=== PATIENT | female | born 1990 | race African-American/Black ===

== ENCOUNTER 2016-11-20 21:11 | Emergency (ER) | payer OTHER, MEDICAID ==
[~2016-11-20 21:11] MED LIST: METR-1 PO
[2016-11-20 21:13] VITALS: BP 119/64; PULSE 71; RESP 16; TEMP 97.8; O2SAT 100
--- NOTE | 2016-11-20 21:51 | PD ---
Physical Exam Date Seen by Provider: Nov 20, 2016 Time Seen by Provider: 21:49 Data Data Last Documented VS Vital Signs Date Time Temp Pulse Resp B/P Pulse Ox O2 Delivery O2 Flow Rate FiO2 11/20/16 21:13 97.8 71 16 119/64 100 Room Air [facility] Supervised Visit with HORACIO: No Narrative Course 26 YO F with complaint of headache and dizziness after being hit in the head by the garage door ~8pm. Denies LOC. Vitals reviewed. Awaiting bed placement. Hanny Castaneda Nov 20, 2016 21:51
[2016-11-20] MEDS ORDERED: ACETAMINOPHEN 325 MG TAB PO ONE (22:00)
[2016-11-20 22:56] LABS: BLOOD, URINE NEG (NEG); GLUCOSE,URINE NEG (NEG); KETONE, URINE NEG (NEG); NITRITE,URINE NEG (NEG); URINE COLOR YELLOW (YELLW/STRAW)
[2016-11-20 23:10] LABS: COMMENT (UR) CULT NOT INDICATED; CULTURE IF INDICATED CULT NOT INDICATED
--- NOTE | 2016-11-20 23:56 | RADRPT ---
EXAM DATE/TIME: 11/20/2016 23:31 [place] COMPARISON: No previous studies available for comparison. INDICATIONS : Garage door fell on head. Complains of dizziness. RADIATION DOSE: 40.07 CTDIvol (mGy) MEDICAL HISTORY : None SURGICAL HISTORY : None. ENCOUNTER: Initial ACUITY: 1 day PAIN SCALE: 0/10 LOCATION: cranial TECHNIQUE: Multiple contiguous axial images were obtained of the head. Using automated exposure control and adj ustment of the mA and/or kV according to patient size, radiation dose was kept as low as reasonably a chievable to obtain optimal diagnostic quality images. FINDINGS: CEREBRUM: The ventricles are normal for age. No evidence of midline shift, mass lesion, hemorrhage or acute in farction. No extra-axial fluid collections are seen. POSTERIOR FOSSA: The cerebellum and brainstem are intact. The 4th ventricle is midline. The cerebellopontine angle i s unremarkable. EXTRACRANIAL: The visualized portion of the orbits is intact. SKULL: The calvaria is intact. No evidence of skull fracture. CONCLUSION: Normal examination. Bud Bee MD on November 20, 2016 at 23:55 Board Certified Radiologist. This report was verified electronically.
--- NOTE | 2016-11-21 00:18 | PD ---
HPI Chief Complaint: Head Injury Time Seen by Provider: 21:54 Travel History International Travel<30 days: No Contact w/Intl Traveler<30days: No Traveled to known affect area: No History of Present Illness HPI Patient is a 26-year-old female who comes in complaining of a headache after the garage door fell on her head. She says it hit the top of her head and her son caught it. She denies any loss of consciousness. She says that her ears and her teeth felt weird afterwards. She says she came in because her mother was worried about her and advised she get checked out. She denies numbness or tingling in his extremities. She denies any other injuries. PFSH Past Medical History Hx Anticoagulant Therapy: No Anemia: Yes Cardiovascular Problems: No Chemotherapy: No Cerebrovascular Accident: No Diabetes: No Diminished Hearing: No Respiratory: No Immunizations Current: Yes ?: Not : 1 Para: 1 Past Surgical History Surgical History: No Previous Surgery Hysterectomy: No Social History Alcohol Use: No Tobacco Use: No Substance Use: No Allergies-Medications (Allergen,Severity, Reaction): Coded Allergies: Cephalexin (Verified Allergy, Severe, Edema, 05/23/16) Macrobid (Verified Allergy, Intermediate, LIP SWELLING, 05/23/16) AND HIVES PER PT Reported Meds & Prescriptions Reported Meds & Active Scripts Active Flagyl (Metronidazole) 500 Mg Tab 500 Mg PO TID Review of Systems Except as stated in HPI: all other systems reviewed are Neg General / Constitutional: No: Fever, Chills Eyes: No: Blurred Vision HENT: Positive: Headaches Cardiovascular: No: Chest Pain or Discomfort Respiratory: No: Shortness of Breath Gastrointestinal: No: Nausea, Vomiting Musculoskeletal: Positive: Pain Skin: No Rash, No Change in Pigmentation Neurologic: No: Weakness, Paresthesia, Sensory Disturbance Physical Exam Narrative GENERAL: Awake and alert, in no acute distress. SKIN: Focused skin assessment warm/dry. HEAD: Atraumatic. Normocephalic. EYES: Pupils equal and round. No scleral icterus. Extraocular movements intact. ENT: Mucous membranes pink and moist. NECK: Trachea midline. No JVD. No cervical spine tenderness. CARDIOVASCULAR: Regular rate and rhythm. No murmur appreciated. RESPIRATORY: No accessory muscle use. Clear to auscultation. Breath sounds equal bilaterally. MUSCULOSKELETAL: No obvious deformities. No clubbing. No cyanosis. No edema. NEUROLOGICAL: Awake and alert. No obvious cranial nerve deficits. Motor grossly within normal limits. Normal speech. PSYCHIATRIC: Appropriate mood and affect; insight and judgment normal. Data Data Last Documented VS Vital Signs Date Time Temp Pulse Resp B/P Pulse Ox O2 Delivery O2 Flow Rate FiO2 11/20/16 21:13 97.8 71 16 119/[address] Brain W/O Iv Contrast(Rout) (11/20/16 ) Urinalysis - C+S If Indicated (11/20/16 21:59) Ed Urine Pregnancytest Poc (11/20/16 21:59) Acetaminophen (Tylenol) (11/20/16 22:00) Labs Laboratory Tests Test 11/20/16:17 Urine Color YELLOW Urine Turbidity CLEAR Urine pH 6.0 Urine Specific [place] 1.029 Urine Protein TRACE mg/dL Urine Glucose (UA) NEG mg/dL Urine Ketones NEG mg/dL Urine Occult Blood NEG Urine Nitrite NEG Urine Bilirubin NEG Urine Urobilinogen 2.0 MG/DL Urine Leukocyte Esterase SMALL Urine WBC 3-5 /hpf Urine Squamous Epithelial 6-8 /hpf Cells Microscopic Urinalysis Comment CULT NOT INDICATED MDM Medical Decision Making Medical Screen Exam Complete: Yes Emergency Medical Condition: Yes Medical Record Reviewed: Yes Differential Diagnosis ICH versus concussion versus head injury Narrative Course Patient is a 26-year-old female comes in complaining of headache after a garage door fell on her head. Exam shows no acute abnormalities, no neurologic abnormalities. CT head performed shows no acute abnormalities. Patient given Tylenol for pain. Patient advised to continue Tylenol or ibuprofen as needed at home for pain. Advised follow-up with her primary care doctor. Advised to return to the ED as needed for any worsening symptoms. Diagnosis Primary Impression: Head injury Qualified Code: S09.90XA - Head injury, initial encounter Patient Instructions: General Instructions, Head Injury (ED) Additional Instructions: Follow up with your primary doctor. Take Tylenol or Ibuprofen as needed for pain. Return to the ED as needed for any worsening symptoms. Disposition: 01 DISCHARGE HOME Condition: Stable Eileen Oreilly MD Nov 21, 2016 00:18
[2016-11-21 00:48] VITALS: BP 90/55
== END 2016-11-21 00:50 | disposition home or self-care (01) ==
LOC: NEPD 21:11
DX: R51 Headache (principal); W20.8XXA Other cause of strike by thrown, projected or falling object, initial encounter; Y93.9 Activity, unspecified; Y92.008 Other place in unspecified non-institutional (private) residence as the place of occurrence of the external cause
CPT/HCPCS: 70450; 81001; 84703; 99284

== ENCOUNTER 2016-12-07 15:31 | Emergency (ER) | payer OTHER, MEDICAID ==
[~2016-12-07] VITALS: Ht 172.7 cm; Wt 56.3 kg
[2016-12-07 15:36] VITALS: BP 109/61; PULSE 66; RESP 14; TEMP 99.7; O2SAT 100
--- NOTE | 2016-12-07 16:04 | PD ---
Physical Exam Date Seen by Provider: Dec 07, 2016 Time Seen by Provider: 16:00 Data Data Last Documented VS Vital Signs Date Time Temp Pulse Resp B/P Pulse Ox O2 Delivery O2 Flow Rate FiO2 12/07/16 15:36 99.7 66 14 109/61 100 MDM Supervised Visit with HORACIO: No Narrative Course 26 YO F with complaint of increased vaginal discharge x 1 month. -- urinary symptoms. ++ unprotected sex. LMP 10. Vitals reviewed. Patient seen in triage, awaiting bed placement. Hanny Castaneda Dec 07, 2016 16:04
[2016-12-07 16:56] LABS: BLOOD, URINE MOD (NEG); COMMENT (UR) CULT NOT INDICATED; CULTURE IF INDICATED CULT NOT INDICATED; GLUCOSE,URINE NEG (NEG); KETONE, URINE NEG (NEG); MUCUS URINE FEW /lpf (OCC); NITRITE,URINE NEG (NEG); PH, URINE 5.5 (5.0-8.5); SQUAMOUS EPITHELIAL CELL URINE 1 /hpf (0-5); URINE COLOR YELLOW (YELLW/STRAW)
[2016-12-07 18:39] VITALS: BP 103/60; PULSE 76; RESP 16; O2SAT 100
--- NOTE | 2016-12-07 18:57 | PD ---
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 She states that she had unprotected sex in August with a previous boyfriend who had given her an STD before. The patient states that she is having low back pain as well. She denies any abdominal pain or pelvic pain. Patient is concerned that she has either a urinary tract infection or a sexually transmitted illness. Patient denies any fevers or chills. No chest pain or shortness of breath. No nausea, vomiting, diarrhea. Patient reports no chronic medical problems. She takes no prescribed medications. PFSH Past Medical History Hx Anticoagulant Therapy: No Anemia: Yes Cardiovascular Problems: No Chemotherapy: No Cerebrovascular Accident: No Diabetes: No Diminished Hearing: No Medical other: Yes (hx std) Respiratory: No Immunizations Current: Yes ?: Not LMP: 11/26/16 : 1 Para: 1 Past Surgical History Hysterectomy: No Social History Alcohol Use: No Tobacco Use: No Substance Use: No Allergies-Medications (Allergen,Severity, Reaction): Coded Allergies: Cephalexin (Verified Allergy, Severe, Edema, 12/07/16) Macrobid (Verified Allergy, Intermediate, LIP SWELLING, 12/07/16) AND HIVES PER PT Reported Meds & Prescriptions Reported Meds & Active Scripts Active No Active Prescriptions or Reported Medications Review of Systems Except as stated in HPI: all other systems reviewed are Neg Physical Exam Narrative GENERAL: Well-nourished, well-developed female patient, ambulatory. Afebrile. SKIN: Focused skin assessment warm/dry. HEAD: Normocephalic. Atraumatic. EYES: No scleral icterus. No injection or drainage. NECK: Supple, trachea midline. No JVD or lymphadenopathy. CARDIOVASCULAR: Regular rate and rhythm without murmurs, gallops, or rubs. RESPIRATORY: Breath sounds equal bilaterally. No accessory muscle use. Lungs sounds are clear to auscultation. GASTROINTESTINAL: Abdomen soft, non-tender, nondistended. MUSCULOSKELETAL: No cyanosis, or edema. BACK: Nontender without obvious deformity. No CVA tenderness. GENITOURINARY: Normal external genitalia without lesions or erythema. Vaginal vault without blood or drainage. Cervical os was closed with white drainage noted. Small blood noted when cervical also swabbed. No cervical motion tenderness. Uterus nontender and nonenlarged. Bilateral adnexa nontender without masses. Physical exam was done with the nurse, Mónica, at bedside. Data Data Last Documented VS Vital Signs Date Time Temp Pulse Resp B/P Pulse Ox O2 Delivery O2 Flow Rate FiO2 12/07/16 19:27 97.9 12/07/16 18:39 76 16 103/60 100 Room Air Orders Urinalysis - C+S If Indicated (12/07/16 16:16) Ed Urine Pregnancytest Poc (12/07/16 16:16) Gc And Chlamydia Pcr (12/07/16 18:51) Wet Prep Profile (12/07/16 18:51) Azithromycin Powd Pack (Zithromax Powd P (12/07/16 19:45) Labs Laboratory Tests Test 12/07/16 12/07/16 16:20 19:40 Urine Color YELLOW Urine Turbidity CLEAR Urine pH 5.5 Urine Specific [place] 1.031 Urine Protein TRACE mg/dL Urine Glucose (UA) NEG mg/dL Urine Ketones NEG mg/dL Urine Occult Blood MOD Urine Nitrite NEG Urine Bilirubin NEG Urine Urobilinogen LESS THAN 2.0 MG/DL Urine Leukocyte Esterase NEG Urine RBC 2 /hpf Urine WBC 3 /hpf Urine Squamous Epithelial 1 /hpf Cells Urine Mucus FEW /lpf Microscopic Urinalysis Comment CULT NOT INDICATED Clue Cells (Wet Prep) NONE SEEN Vaginal Trichomonas (Wet Prep) NONE SEEN Vaginal Yeast (Wet Prep) NONE SEEN MDM Medical Decision Making Medical Screen Exam Complete: Yes Emergency Medical Condition: Yes Medical Record Reviewed: Yes Differential Diagnosis STI versus UTI versus cervicitis versus PID Narrative Course 26-year-old female presents to the emergency department for evaluation of worsening vaginal discharge over the past month. She has no abdominal pain or pelvic pain to exam. Patient's temperature was 99.7 at triage. However, this was retaken in exam room and she is 97.9 without intervention. Patient does appear well exam. Urine test is negative. Urinalysis is negative for acute infection. Patient gives verbal consent for pelvic exam. Wet prep is negative for Trichomonas, yeast, bacterial vaginosis. Patient is reports allergy to cephalexin, states that possible swollen lip and she was a child. Therefore, the patient is treated with azithromycin 2 g by mouth. No evidence of PID on exam. Patient is stable for discharge. 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 She is to return for any acute worsening of symptoms. Patient verbalizes agreement. The patient was discharged in stable condition with instructions, including return instructions and follow up instructions. 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 Return to the emergency department for any acute worsening of symptoms. Med/Other Pt SpecificInfo: No Change to Meds Scripts No Active Prescriptions or Reported Meds Disposition: 01 DISCHARGE HOME Condition: Stable Mary Michelle Dec 07, 2016 18:57
[2016-12-07 19:27] VITALS: TEMP 97.9
[2016-12-07] MEDS ORDERED: AZITHROMYCIN PWD FOR SUSP 1 GM PACKET PO ONE (19:45)
[2016-12-07 22:15] LABS: CHLAMYDIA PCR NOT DETECTED (NOT DETECT); NEISSERIA PCR NOT DETECTED (NOT DETECT)
== END 2016-12-07 20:57 | disposition home or self-care (01) ==
LOC: NEPD 15:31
DX: N72 Inflammatory disease of cervix uteri (principal); M54.5 Low back pain; D64.9 Anemia, unspecified; Z88.8 Allergy status to other drugs, medicaments and biological substances
CPT/HCPCS: 81001; 84703; 87210; 87491; 87591; 99283

== ENCOUNTER 2017-08-28 09:25 | Emergency (ER) | payer MEDICAID, OTHER ==
[~2017-08-28] VITALS: Ht 172.7 cm; Wt 55.0 kg
[2017-08-28 09:33] VITALS: BP 106/56; PULSE 71; RESP 15; TEMP 98.9; O2SAT 100
[2017-08-28 11:05] LABS: AUTOMATED NEUTROPHIL # 2.5 TH/MM3 (1.8-7.7); BASOPHIL % 0.6 % (0.0-2.0); EOSINOPHIL # 0.1 TH/MM3 (0-0.4); EOSINOPHIL % 2.3 % (0.0-4.0); HEMATOCRIT 36.5 % (35.0-46.0); HEMOGLOBIN 12.2 GM/DL (11.6-15.3); LYMPHOCYTE # 1.3 TH/MM3 (1.0-4.8); MEAN CELL VOLUME 85.3 FL (80.0-100.0); MEAN CORPUSCULAR HEMOGLOBIN 28.5 PG (27.0-34.0); MEAN CORPUSCULAR HGB CONC 33.3 % (32.0-36.0); MEAN PLATELET VOLUME 8.7 FL (7.0-11.0); MONOCYTE # 0.3 TH/MM3 (0-0.9); NEUT % 58.1 % (16.0-70.0); PLATELET COUNT 258 TH/MM3 (150-450); RED BLOOD COUNT 4.27 MIL/MM3 (4.00-5.30); RED CELL DISTRIBUTION WIDTH 12.9 % (11.6-17.2); WHITE BLOOD COUNT 4.3 TH/MM3 (4.0-11.0)
[2017-08-28 11:25] LABS: BILIRUBIN, URINE NEG (NEG); BLOOD, URINE LARGE (NEG); GLUCOSE,URINE NEG (NEG); KETONE, URINE NEG (NEG); MUCUS URINE MANY /lpf (OCC); NITRITE,URINE NEG (NEG); SQUAMOUS EPITHELIAL CELL URINE 2 /hpf (0-5); URINE COLOR YELLOW (YELLW/STRAW); URINE LEUKOCYTE ESTERASE NEG (NEG)
[2017-08-28 11:32] LABS: BICARBONATE 26.1 MEQ/L (21.0-32.0); CALCIUM 9.5 MG/DL (8.5-10.1); CREATININE 0.87 MG/DL (0.50-1.00)
--- NOTE | 2017-08-28 11:48 | PD ---
HPI . 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 She states that she got the Depo-Provera shot for the first time in April. She states that she has been bleeding since then. Basically, the bleeding is just annoying. She presents wanting to know how much longer this is going to labs. She states that she has no intentions of using any further hormonal control because of her bad experience with the bad experience with the Depo- Provera. She denies pelvic pain or vaginal discharge. PFSH Past Medical History Hx Anticoagulant Therapy: No Anemia: Yes Cardiovascular Problems: No Chemotherapy: No Cerebrovascular Accident: No Diabetes: No Diminished Hearing: No Respiratory: No Immunizations Current: Yes ?: Not LMP: DEPO : 1 Para: 1 Past Surgical History Hysterectomy: No Social History Alcohol Use: No Tobacco Use: No Substance Use: No Allergies-Medications (Allergen,Severity, Reaction): Coded Allergies: cephalexin (Unverified Allergy, Severe, Edema, 01/31/17) nitrofurantoin (Unverified Allergy, Intermediate, LIP SWELLING, 01/31/17) AND HIVES PER PT Reported Meds & Prescriptions Reported Meds & Active Scripts Active No Active Prescriptions or Reported Medications Review of Systems Except as stated in HPI: all other systems reviewed are Neg Physical Exam Narrative GENERAL: Awake and alert and in no acute distress. SKIN: Warm and dry. Normal color. HEAD: Normocephalic/atraumatic. EYES: Pupils are equal. Extraocular movements are intact. Delay NECK: Normal range of motion. CARDIOVASCULAR: Regular rate and rhythm. RESPIRATORY: Nonlabored respirations. ABDOMEN: Abdomen is soft and nontender. Delete MUSCULOSKELETAL: Atraumatic. NEUROLOGICAL: Nonfocal. PSYCHIATRIC: Appropriate mood and affect. Data Data Last Documented VS Vital Signs Date Time Temp Pulse Resp B/P (MAP) Pulse Ox O2 Delivery O2 Flow Rate FiO2 08/28/17 09:33 98.9 71 15 106/56 (73) 100 Orders Orders Complete Blood Count With Diff (08/28/17 09:37) Iv Access Insert/Monitor (08/28/17 09:37) Oxygen Administration (08/28/17 09:37) Oximetry (08/28/17 09:37) Ed Urine Pregnancytest Poc (08/28/17 09:37) Urinalysis - C+S If Indicated (08/28/17 09:37) Basic Metabolic Panel (Bmp) (08/28/17 09:37) Ed Discharge Order (08/28/17 11:42) Labs Laboratory Tests Test 08/28/17 10:15 White Blood Count 4.3 TH/MM3 Red Blood Count 4.27 MIL/MM3 Hemoglobin 12.2 GM/DL Hematocrit 36.5 % Mean Corpuscular Volume 85.3 FL Mean Corpuscular Hemoglobin 28.5 PG Mean Corpuscular Hemoglobin Concent 33.3 % Red Cell Distribution Width 12.9 % Platelet Count 258 TH/MM3 Mean Platelet Volume 8.7 FL Neutrophils (%) (Auto) 58.1 % Lymphocytes (%) (Auto) 31.0 % Monocytes (%) (Auto) 8.0 % Eosinophils (%) (Auto) 2.3 % Basophils (%) (Auto) 0.6 % Neutrophils # (Auto) 2.5 TH/MM3 Lymphocytes # (Auto) 1.3 TH/MM3 Monocytes # (Auto) 0.3 TH/MM3 Eosinophils # (Auto) 0.1 TH/MM3 Basophils # (Auto) 0.0 TH/MM3 CBC Comment DIFF FINAL Differential Comment Urine Color YELLOW Urine Turbidity HAZY Urine pH 6.0 Urine Specific [place] 1.035 Urine Protein 30 mg/dL Urine Glucose (UA) NEG mg/dL Urine Ketones NEG mg/dL Urine Occult Blood LARGE Urine Nitrite NEG Urine Bilirubin NEG Urine Urobilinogen 2.0 MG/DL Urine Leukocyte Esterase NEG Urine RBC /hpf Urine WBC LESS THAN 1 /hpf Urine Squamous Epithelial Cells 2 /hpf Urine Mucus MANY /lpf Microscopic Urinalysis Comment CULT NOT INDICATED Blood Urea Nitrogen 7 MG/DL Creatinine 0.87 MG/DL Random Glucose 81 MG/DL Calcium Level 9.5 MG/DL Sodium Level 142 MEQ/L Potassium Level 3.7 MEQ/L Chloride Level 108 MEQ/L Carbon Dioxide Level 26.1 MEQ/L Anion Gap 8 MEQ/L Estimat Glomerular Filtration Rate 97 ML/MIN [facility] Medical Decision Making Medical Screen Exam Complete: Yes Emergency Medical Condition: Yes Differential Diagnosis Differential diagnosis of vaginal bleeding includes but is not limited to dysfunctional uterine bleeding, normal menstrual cycle, ectopic , spontaneous AB, PID. Narrative Course This patient presents with vaginal bleeding associated with a Depo-Provera shot. She is not having any pelvic pain. She basically just wants the bleeding to stop. CBC & BMP Diagram 08/28/17 10:15 Calcium Level 9.5 HCG is negative. UA shows blood but no evidence of infection. This patient is being discharged with reassurance that she should be close to the end of the effects of the Depo-Provera shot. Diagnosis Primary Impression: Vaginal bleeding Patient Instructions: General Instructions, Dysfunctional Uterine Bleeding (ED) Departure Forms: Tests/Procedures Scripts No Active Prescriptions or Reported Meds Disposition: DISCHARGE HOME Condition: Stable Astrid Elkins MD Aug 28, 2017 11:48
== END 2017-08-28 12:00 | disposition home or self-care (01) ==
LOC: NEPD 09:25
DX: N93.9 Abnormal uterine and vaginal bleeding, unspecified (principal); T38.5X5A Adverse effect of other estrogens and progestogens, initial encounter
CPT/HCPCS: 80048; 81001; 84703; 85025; 99283